=== PATIENT | female | born 1970 | race Caucasian/White ===

== ENCOUNTER → 2017-07-14 | Outpatient (CLI) | payer OTHER ==
--- NOTE | 2017-07-15 12:52 | MM ---
Reason for exam: screening (asymptomatic). Last mammogram was performed 1 year and 4 months ago. History: Patient had first child at age 32. Family history of breast cancer in aunt at age 85. Physical Findings: A clinical breast exam by your physician is recommended on an annual basis and results should be correlated with mammographic findings. MG Screening Mammo w CAD Bilateral CC and MLO view(s) were taken. Prior study comparison: March 19, 2016, bilateral MG screening mammo w CAD. January 2015, mammogram, performed at [facility]. There are scattered fibroglandular densities. Finding: There are a few typically benign round calcifications in the left breast. There is a chronic nodularity in the right breast. There is no discrete abnormality. ASSESSMENT: Benign, BI-RAD 2 RECOMMENDATION: Routine screening mammogram of both breasts in 1 year.
== END | disposition home or self-care (01) ==
LOC: RADMAMWWP 13:26
PROVIDERS: ATTEND Family Medicine
DX: Z12.31 Encounter for screening mammogram for malignant neoplasm of breast (principal); Z80.3 Family history of malignant neoplasm of breast

== ENCOUNTER → 2017-10-24 | Outpatient (CLI) | payer OTHER ==
--- NOTE | 2017-10-24 17:29 | US ---
EXAMINATION TYPE: Ultrasound MSK right ankle, peroneal tendons DATE OF EXAM: 10/24/2017 COMPARISON: NONE CLINICAL HISTORY: 47-year-old female with lateral right foot pain for one year, possibly related to p rior injury. Some improvement with physical therapy. M66.371 peroneal Tendon Tear right Ankle. TECHNIQUE: Multiple sonographic images of the lateral right ankle for assessment of the peroneal tend ons. FINDINGS: Both peroneal longus and peroneal brevis tendons appear intact with preservation of normal fibrillar appearance. The peroneus longus is followed to the lateral hindfoot just prior to its course along th e cuboid tunnel. The peroneus brevis is followed to its insertion at the base of the fifth metatarsal . No significant tenosynovial fluid. Along the inferior margin of the insertional peroneal brevis, there is a 2.1 x 1.0 cm lobulated hypoe choic lesion that demonstrates minimal internal vascularity. Some of the patient's pain localizes to this area. IMPRESSION: 1. No peroneal tendon tear identified. 2. A 2.1 x 1.0 cm focal hypoechoic area along the inferior margin of the insertional peroneus brevis. Differential considerations include gout, giant cell tumor of the tendon sheath, and synovitis inclu ding etiologies such as PVNS. Some of the patient's pain localizes to this area.
== END | disposition home or self-care (01) ==
LOC: RADUSWWP 08:17
PROVIDERS: ATTEND Podiatrist Foot & Ankle Surgery
DX: R93.7 Abnormal findings on diagnostic imaging of other parts of musculoskeletal system (principal)

== ENCOUNTER → 2017-10-24 | Outpatient (CLI) | payer OTHER ==
[2017-10-24 09:27] LABS: Basophils % (A) 1 %; Eosinophils # (A) 0.1 k/uL (0-0.7); Eosinophils % (A) 2 %; HCT 40.7 % (34.0-46.0); HGB 12.5 gm/dL (11.4-16.0); Hypochromasia Slight; Lymphocytes # (A) 2.2 k/uL (1.0-4.8); Lymphocytes % (A) 31 %; MCH 27.6 pg (25.0-35.0); MCHC 30.8 g/dL (31.0-37.0); MCV 89.6 fL (80.0-100.0); Mean Platelet Volume 8.6; Monocytes # (A) 0.5 k/uL (0-1.0); Monocytes % (A) 7 %; Neutrophils # (A) 3.9 k/uL (1.3-7.7); Neutrophils % (A) 57 %; Platelet Count 215 k/uL (150-450); RBC 4.55 m/uL (3.80-5.40); RDW 15.9 % (11.5-15.5); WBC 6.9 k/uL (3.8-10.6)
== END | disposition home or self-care (01) ==
LOC: LABWHC1 08:57
PROVIDERS: ATTEND Obstetrics & Gynecology Obstetrics
DX: I10 Essential (primary) hypertension (principal); Z01.812 Encounter for preprocedural laboratory examination; N92.1 Excessive and frequent menstruation with irregular cycle
CPT/HCPCS: 36415; 85025; 93005

== ENCOUNTER 2017-11-22 08:51 | Day surgery (SDC) | payer OTHER ==
[2017-11-10 16:37] VITALS: BMI 52.7
--- NOTE | 2017-11-21 14:06 | P.HPOB ---
History of Present Illness H&P Date: 11/21/17 Chief Complaint: AUB, family status complete This is a 47yo female that presents with c/o heavy irregular menses. she notes menses q 2 weeks with a heavy flow lasting 7 days she does have a history of uterine fibroids. she in addition desires LTL as she is done with childbearing. Review of Systems Constitutional: Reports lethargy, Denies chills, Denies fatigue, Denies fever Respiratory: Denies cough, Denies dyspnea Gastrointestinal: Denies constipation, Denies diarrhea Genitourinary: Denies urgency Menstruation: Reports menses variable, Reports period heavy Past Medical History Past Medical History: Deep Vein Thrombosis (DVT), GERD/Reflux, Hypertension, Sleep Apnea/CPAP/BIPAP Additional Past Medical History / Comment(s): C-PAP MACHINE, VARICOSE VEINS, HX OF ANEMIA, IRREGULAR MENSTRUAL PERIODS. History of Any Multi-Drug Resistant Organisms: None Reported Past Surgical History: Orthopedic Surgery Additional Past Surgical History / Comment(s): LEFT LEG FX PLATE & SCREWS Past Anesthesia/Blood Transfusion Reactions: No Reported Reaction Past Psychological History: No Psychological Hx Reported Smoking Status: Never smoker Past Alcohol Use History: Rare Past Drug Use History: None Reported - Past Family History Mother Family Medical History: No Reported History Medications and Allergies Home Medications Medication Instructions Recorded Confirmed Type Ergocalciferol [Vitamin D2] 50,000 unit PO Q7D 11/10/17 11/10/17 History Hydrochlorothiazide 25 mg PO DAILY 11/10/17 11/10/17 History Losartan [Cozaar] 25 mg PO DAILY 11/10/17 11/10/17 History Naproxen [Naprosyn] 500 mg PO Q12HR PRN 11/10/17 11/10/17 History Ranitidine HCl [Zantac] 150 mg PO BID 11/10/17 11/10/17 History Montelukast Sodium [Singulair] 10 mg PO QAM 11/18/17 11/18/17 History Wellbutrin(Unk Dose) 1 tab PO BID 11/18/17 11/18/17 History Allergies Allergy/AdvReac Type Severity Reaction Status Date / Time Penicillins Allergy Unknown Rash/Hives, Verified 11/10/17 11:12 Itching adhesive Allergy Steri Verified 11/10/17 11:13 Strips - Irritated skin and infection Exam Osteopathic Statement: *. No significant issues noted on an osteopathic structural exam other than those noted in the History and Physical/Consult. - OBG Physical Exam Abdomen: bowel sounds normal Vulva: both: normal Vagina: normal moisture Cervix: normal in appearence Uterus: 9cm on emb in the office. Uterus: normal size Adnexa: both: normal Anus/Rectum: normal perianal skin Assessment and Plan (1) Menometrorrhagia Narrative/Plan: will plan LTL, H GERDA EA. surgery reviewed with pt and questions answered. risks reviewed and pt states understanding, informed consent obtained Status: Acute Code(s): N92.1 - EXCESSIVE AND FREQUENT MENSTRUATION WITH IRREGULAR CYCLE SNOMED Code(s): 630128979
[~2017-11-22 08:51] MED LIST: ACETAMINOPHEN IV (For NPO) 1,000 MG in EMPTY BAG 1 BAG IVPB ONE; DEXAMETHASONE SOD PHOSPHATE 10 MG/ML 1 ML VIAL IV ONE; LACTATED RINGERS 1,000 ML IV SCH; MIDAZOLAM 2 MG/2 ML VIAL IV PRN; MORPHINE SULFATE 4 MG/ML SYRINGE IV PRN; ONDANSETRON 4 MG/2 ML VIAL IVP ONE; Pre Op ABX Message 1 EACH MISC MISCELLANE ONE; SCOPOLAMINE 1.5MG/72HR PATCH TRANSDERM ONE
[2017-11-22 09:46] VITALS: RESP 16
[2017-11-22] MEDS ORDERED: LIDOCAINE 1% 20 ML VIAL (10MG/ML) FOR IV START INTRADERMA ONE (09:50)
[2017-11-22] MEDS ORDERED: ROCURONIUM BROMIDE 10 MG/ML 10 ML VIAL IV ONE (10:36)
[2017-11-22] MEDS ORDERED: NEOSTIGMINE 1 MG/ML 10 ML VIAL ONE (10:36)
[2017-11-22] MEDS ORDERED: LIDOCAINE 1% INJ 10MG/ML (20 ML MDV) ONE (10:36)
[2017-11-22] MEDS ORDERED: GLYCOPYRROLATE 0.2 MG/ML 2 ML VIAL ONE (10:36)
[2017-11-22] MEDS ORDERED: SUCCINYLCHOLINE CHLORIDE VIAL 200 MG/10 ML VIAL IV ONE (10:36)
[2017-11-22] MEDS ORDERED: fentaNYL (PF) 50 MCG/ML 2 ML AMP ONE (10:36)
[2017-11-22] MEDS ORDERED: KETOROLAC 30 MG/ML 1 ML VIAL ONE (10:36)
[2017-11-22] MEDS ORDERED: MIDAZOLAM 2 MG/2 ML VIAL ONE (10:36)
[2017-11-22] MEDS ORDERED: PROPOFOL 10 MG/ML 20 ML VIAL IV ONE (10:36)
[2017-11-22] MEDS ORDERED: BUPIVACAINE (PF) 0.25% 30 ML VIAL SQ ONE (10:57)
--- NOTE | 2017-11-22 11:42 | P.OP ---
Date of Procedure: 11/22/17 Preoperative Diagnosis: menorrhagia, uterine fibroids, family status complete Postoperative Diagnosis: same Procedure(s) Performed: LTL with falope rings, Hysteroscopy, dilation and currettage, endometrial ablation Anesthesia: GETA Surgeon: Ksenia Carrington Estimated Blood Loss (ml): 5 IV fluids (ml): 600 Urine output (ml): 100 Pathology: other (Endometrial curettings scant sample) Condition: stable Disposition: PACU Indications for Procedure: Family status complete, menorrhagia Operative Findings: Normal uterus tubes and ovaries were appreciated, endometrial cavity was normal in appearance. Description of Procedure: After informed consent was obtained in the preoperative suite patient was taken operating room where general anesthesia was obtained without difficulty by the anesthesia department. She was prepped and draped in normal sterile fashion in the dorsal lithotomy position. A red rubber catheter was then used to drain the bladder clear yellow urine with speculum in the posterior vaginal vault and the anterior lip of cervix was visualized and grasped with a single-tooth tenaculum. An acorn uterine macular was then advanced into the endometrial cavity as a means medically the uterus throughout the procedure. Attention was then turned to the abdomen where in the umbilical fold small incision was made through this incision the Veress needle was placed with a various needle was seen to be Procession with insufflation of CO2 gas CO2 insufflation was allowed to occur. Barnhart 3 L of gas were used to obtain pneumoperitoneum at this time and felt millimeter trocar and sleeve of the left scope in place was placed through the skin incision toward the pneumoperitoneum. The above noted findings were visualized. At this point the additional port site was placed in the right lower quadrant this is a 10 mm port placed under direct visualization. The Falope ring applicator was then placed into the abdomen operated per caustic cresylate shift superintendent's instructions on both fallopian tubes pictures were taken and all instruments removed from the patient's abdomen. Attention was then turned to the patient's vaginal vault acorn uterine manipulator was removed without difficulty and endocervical canal was then dilated to 18-Afghan. Hysteroscope was placed through the cervix and further endometrial cavity a normal appearing and in neutral T was visualized. A sharp curettage was then performed the specimen was then sent to pathology for analysis. The NovaSure device was then opened and set to the patient's uterine measurements a length of 5 with a 2.5 for a power of 69 in a timely 3 seconds. After the cycle was complete and of note it did pass cavity assessment prior to initiating the cycle day NovaSure device was removed without difficulty. The skin incisions were then closed with 4-0 Vicryl in a difficult fashion Steri -Strips and endometrial applied as needed. All counts are correct 2 tolerated procedure well and was taken the recovery room awake and in stable condition
[2017-11-22 11:56] VITALS: TEMP 97.8
[2017-11-22] MEDS ORDERED: HYDROmorphone 2 MG/ML 1 ML SYRINGE IVP ONE ×2 (12:18→12:23)
[2017-11-22] MEDS ORDERED: LACTATED RINGERS 1,000 ML IV ONE (12:18)
[2017-11-22] MEDS ORDERED: ONDANSETRON 4 MG/2 ML VIAL IVP ONE (12:51)
[2017-11-22 13:18] VITALS: BP 141/80; PULSE 69
[2017-11-22] MEDS ORDERED: METOCLOPRAMIDE 5 MG/ML 2 ML VIAL IVP ONE (14:06)
== END 2017-11-22 14:41 | disposition home or self-care (01) ==
LOC: OR 08:51
PROVIDERS: ATTEND Obstetrics & Gynecology Obstetrics
DX: N92.1 Excessive and frequent menstruation with irregular cycle (principal); Z30.2 Encounter for sterilization; N87.9 Dysplasia of cervix uteri, unspecified; K21.9 Gastro-esophageal reflux disease without esophagitis; I10 Essential (primary) hypertension; G47.33 Obstructive sleep apnea (adult) (pediatric); E66.9 Obesity, unspecified; Z68.43 Body mass index [BMI] 50.0-59.9, adult; Z88.0 Allergy status to penicillin; Z91.048 Other nonmedicinal substance allergy status; Z79.899 Other long term (current) drug therapy; Z86.718 Personal history of other venous thrombosis and embolism; Z99.89 Dependence on other enabling machines and devices
CPT/HCPCS: 58563; 58671; 81025; 88305; J2250; J0330; J1170; J1100; J2710; J2765; J2405; J2001; J3010; J1885; J0131; J2704

== ENCOUNTER → 2018-01-09 | Outpatient (CLI) | payer OTHER ==
--- NOTE | 2018-01-10 09:37 | MR ---
EXAMINATION TYPE: MR ankle RT wo con DATE OF EXAM: 01/09/2018 COMPARISON: Right ankle ultrasound October 24, 2017. HISTORY: Peroneal tendonitis per order, ankle pain x 1 year per patient. Standard multiplanar, multisequence MRI departmental protocol Multiplanar, multisequence images of the right ankle were acquired. FINDINGS: Exam is suboptimal as there is degradation from motion artifact. Distal Achilles tendon is intact. Visualized plantar fascia is within normal limits. The peroneal tendons are intact. There is slight thickening of the tendons at level of the lateral ma lleolus with some surrounding fluid particularly the peroneal longus tendon. There is also some surro unding fluid and pronated brevis insertion at base of fifth metatarsal with mild increased signal see n best axial image 2, sagittal image 17, and coronal image 11. Fluid surrounds the posterior tibial tendon at level of tibiotalar joint with adjacent subcutaneous e codie. There is additional fluid at level of medial malleolus in the apices DLP as well as additional fluid and mid to anterior calcaneal level. Tendon is intact. Area of increased fluid at FHL posterior malleoli is present. Anterior tibiofibular and the anterior talofibular ligaments are intact. Anterior and posterior talof ibular ligaments appear slightly thickened. Normal sinus tarsi fat is seen. Ankle mortise symmetry is maintained. There is moderate tibiotalar tayo int effusion. Bone marrow signal intensity is preserved. Extensor tendons anteriorly are intact. IMPRESSION: 1. There is tendinosis and/or mild tear distal PB tendon, there is suspected tenosynovitis of PL and PB tendons. No obvious mass near insertion identified to account for ultrasound findings. 2. Additional tenosynovitis of the posterior medial flexor tendons noted.
== END | disposition home or self-care (01) ==
LOC: RADMRIMAIN 10:06
PROVIDERS: ATTEND Podiatrist Foot & Ankle Surgery
DX: M65.871 Other synovitis and tenosynovitis, right ankle and foot (principal)

== ENCOUNTER → 2018-10-16 | Outpatient (CLI) | payer OTHER ==
--- NOTE | 2018-10-17 07:35 | MM ---
Reason for exam: screening (asymptomatic). Last mammogram was performed 1 year and 3 months ago. History: Patient had first child at age 32. Family history of breast cancer in aunt at age 85. Physical Findings: A clinical breast exam by your physician is recommended on an annual basis and results should be correlated with mammographic findings. MG Screening Mammo w CAD Bilateral CC and MLO view(s) were taken. Prior study comparison: July 14, 2017, bilateral MG screening mammo w CAD. March 19, 2016, bilateral MG screening mammo w CAD. There are scattered fibroglandular densities. There is chronic nodularity in the right breast. No significant changes when compared with prior studies. ASSESSMENT: Benign, BI-RAD 2 RECOMMENDATION: Routine screening mammogram of both breasts in 1 year.
== END | disposition home or self-care (01) ==
LOC: RADMAMWWP 07:16
PROVIDERS: ATTEND Family Medicine
DX: Z12.31 Encounter for screening mammogram for malignant neoplasm of breast (principal); Z80.3 Family history of malignant neoplasm of breast
CPT/HCPCS: 77067

== ENCOUNTER → 2018-11-21 | Outpatient (CLI) | payer BC ==
--- NOTE | 2018-11-21 23:10 | MR ---
EXAMINATION TYPE: MR ankle RT wo con DATE OF EXAM: 11/21/2018 COMPARISON: 01/09/2018 HISTORY: Pain Standard multiplanar, multisequence MRI departmental protocol Multiplanar, multisequence images of the right ankle were acquired. FINDINGS: There is mild ankle joint effusion. There is subcutaneous edema around the lower leg. There is edema in the soft tissues anterior to the Achilles tendon and posterior to the flexor tendons of the ankle. The collateral ligaments appear intact. There is no evidence for fracture. I see no bony d estructive process. There is fluid around the medial and lateral flexor tendons of the ankle. Luke s tendon is intact. There is no retraction. Joint spaces are fairly normal. Ankle mortise is anatomic . There is mild subcutaneous edema around the ankle. IMPRESSION: There is subcutaneous edema similar to old exam. There is fluid around the medial and lateral flexor tendons of the ankle consistent with tenosynovitis unchanged.. Normal joint spaces. No fracture seen.
== END ==
LOC: RADMRIMAIN 18:46
PROVIDERS: ATTEND Podiatrist Foot & Ankle Surgery
DX: M76.71 Peroneal tendinitis, right leg (principal); R60.0 Localized edema

== ENCOUNTER → 2019-08-16 | Outpatient (CLI) | payer BC ==
[2019-08-16 09:37] LABS: Basophils # (A) 0.1 k/uL (0-0.2); Basophils % (A) 1 %; Eosinophils # (A) 0.1 k/uL (0-0.7); Eosinophils % (A) 2 %; HCT 38.3 % (34.0-46.0); Lymphocytes % (A) 23 %; MCH 30.1 pg (25.0-35.0); MCV 88.7 fL (80.0-100.0); Mean Platelet Volume 7.1; Monocytes # (A) 0.5 k/uL (0-1.0); Monocytes % (A) 6 %; Neutrophils # (A) 5.8 k/uL (1.3-7.7); Neutrophils % (A) 67 %; Platelet Count 257 k/uL (150-450); RBC 4.32 m/uL (3.80-5.40); WBC 8.7 k/uL (3.8-10.6)
== END | disposition home or self-care (01) ==
LOC: LABPAT 08:31
PROVIDERS: ATTEND Obstetrics & Gynecology Obstetrics
DX: Z01.818 Encounter for other preprocedural examination (principal); Z01.812 Encounter for preprocedural laboratory examination; N93.0 Postcoital and contact bleeding; N84.1 Polyp of cervix uteri; I10 Essential (primary) hypertension
CPT/HCPCS: 36415; 85025; 93005

== ENCOUNTER 2019-08-21 08:28 | Day surgery (SDC) | payer BC ==
[2019-08-20 10:00] VITALS: BMI 50.1
--- NOTE | 2019-08-20 14:36 | P.HPOB ---
History of Present Illness H&P Date: 08/20/19 Chief Complaint: postcoital bleeding, endometrial polyp This is a 49yo female that presents with c/o post coital spotting/bleeding. she states it has been going on for months. she had a recent pap and it was normal in addition. us was obtained and a endometrial polyp was noted. dsicussed H DC given this polyp Review of Systems Constitutional: Denies chills, Denies fatigue, Denies fever Cardiovascular: Denies edema Respiratory: Denies dyspnea Gastrointestinal: Denies nausea, Denies vomiting Genitourinary: Reports as per HPI Past Medical History Past Medical History: GERD/Reflux, Hypertension, Sleep Apnea/CPAP/BIPAP Additional Past Medical History / Comment(s): left foot pain and needs foot surgery. cpap use History of Any Multi-Drug Resistant Organisms: None Reported Past Surgical History: Orthopedic Surgery, Tubal Ligation Additional Past Surgical History / Comment(s): left leg surgery following broken bone Past Anesthesia/Blood Transfusion Reactions: Postoperative Nausea & Vomiting (PONV) Smoking Status: Never smoker - Past Family History Mother Family Medical History: Coronary Artery Disease (CAD), Diabetes Mellitus Father Family Medical History: Congestive Heart Failure (CHF), Coronary Artery Disease (CAD), Diabetes Mellitus Medications and Allergies Home Medications Medication Instructions Recorded Confirmed Type Ergocalciferol [Vitamin D2] 50,000 unit PO Q7D 11/10/17 08/20/19 History Hydrochlorothiazide 25 mg PO DAILY 11/10/17 08/20/19 History Losartan [Cozaar] 100 mg PO DAILY 11/10/17 08/20/19 History Ranitidine HCl [Zantac] 150 mg PO BID 11/10/17 08/20/19 History Nf-Cbd Oil 1 dose PO BID 08/20/19 08/20/19 History Allergies Allergy/AdvReac Type Severity Reaction Status Date / Time Penicillins Allergy Unknown Rash/Hives, Verified 08/20/19 09:51 Itching adhesive Allergy Steri Verified 08/20/19 09:51 Strips - Irritated skin and infection Exam Osteopathic Statement: *. No significant issues noted on an osteopathic structural exam other than those noted in the History and Physical/Consult. Intake and Output 08/19/19 08/20/19 08/20/19 22:59 06:59 14:59 Other: Weight 149.685 kg targeted physical exam was preformed on this patient, in general this is a well nourished well developed female in NAD, heart has a RRR, breathing is noted to be non labored. abdomen is soft and non tender, uterus is normal in size, mobile. no adnexal masses are appreciated. she has no LE edema Assessment and Plan (1) Postcoital bleeding Status: Acute Code(s): N93.0 - POSTCOITAL AND CONTACT BLEEDING SNOMED Code (s): 31670122 (2) Endometrial polyp Status: Acute Code(s): N84.0 - POLYP OF CORPUS UTERI SNOMED Code(s): 79828962 Plan: Plan H DC procedure reviewed with pt and all questions answered. will proceed
[~2019-08-21 08:28] MED LIST changes: -ACETAMINOPHEN IV (For NPO) 1,000 MG in EMPTY BAG 1 BAG IVPB ONE; +HYDROmorphone 0.5 MG/0.5 ML SYRINGE IVP PRN; -MORPHINE SULFATE 4 MG/ML SYRINGE IV PRN
[2019-08-21 08:50] VITALS: RESP 16
[2019-08-21] MEDS ORDERED: LIDOCAINE 1% 20 ML VIAL (10MG/ML) FOR IV START INTRADERMA ONE (08:57)
[2019-08-21] MEDS ORDERED: PROPOFOL 10 MG/ML 20 ML VIAL IV ONE (09:22)
[2019-08-21] MEDS ORDERED: fentaNYL (PF) 50 MCG/ML 2 ML AMP ONE (09:22)
[2019-08-21] MEDS ORDERED: KETOROLAC 30 MG/ML 1 ML VIAL ONE (09:22)
[2019-08-21] MEDS ORDERED: SUCCINYLCHOLINE CHLORIDE VIAL 200 MG/10 ML VIAL IV ONE (09:22)
[2019-08-21] MEDS ORDERED: LIDOCAINE 1% INJ 10MG/ML (20 ML MDV) ONE (09:22)
[2019-08-21] MEDS ORDERED: MIDAZOLAM 2 MG/2 ML VIAL ONE (09:22)
--- NOTE | 2019-08-21 10:07 | P.OP ---
Date of Procedure: 08/21/19 Preoperative Diagnosis: Postcoital bleeding, parametrial polyp Postoperative Diagnosis: Same plus cervical stenosis Procedure(s) Performed: Hysteroscopy, dilation curettage Anesthesia: NADINEA Surgeon: Ksenia Carrington Estimated Blood Loss (ml): 5 Urine output (ml): 100 Pathology: other (Scant endometrial curettings secondary to cervical stenosis) Condition: stable Disposition: PACU Indications for Procedure: Postcoital bleeding ultrasound revealing endometrial polyp Operative Findings: Significant cervical stenosis noted, Asherman syndrome noted within endometrial cavity Description of Procedure: Patient was taken back to the operative suite where general anesthesia was obtained without difficulty by the anesthesia department. She was prepped and draped in normal sterile fashion in the dorsal lithotomy position. A right upper catheter was then used to drain the bladder of clear yellow urine. A weighted speculum was placed in the posterior vaginal vault, and the anterior lip of the cervix was visualized and grasped with a single-tooth tenaculum. The endocervical canal was then dilated cervical stenosis was noted. The hysteroscope was then placed through the cervix and toward the endometrial cavity that had sounded to 8 cm. Asherman syndrome was noted no abnormalities were noted as far as abnormal-appearing individual tissue. Camera was removed and a sharp curettage was performed this was difficult secondary to cervical cervical stenosis. Additional dilation was performed and still difficulties were encountered. The scant specimen was sent to pathology for analysis. The single-tooth tenaculum was taken off of the anterior lip of the cervix no bleeding was noted. All instruments were removed from the patient's vaginal vault, ALL COUNTS were correct 2, patient tolerated procedure well and was taken the recovery room awake in stable condition.
[2019-08-21 10:16] VITALS: TEMP 97
[2019-08-21 11:39] VITALS: BP 132/66; PULSE 49
== END 2019-08-21 12:09 | disposition home or self-care (01) ==
LOC: OR 08:28
PROVIDERS: ATTEND Obstetrics & Gynecology Obstetrics
DX: N88.2 Stricture and stenosis of cervix uteri (principal); N93.0 Postcoital and contact bleeding; N88.8 Other specified noninflammatory disorders of cervix uteri; I10 Essential (primary) hypertension; K21.9 Gastro-esophageal reflux disease without esophagitis; G47.33 Obstructive sleep apnea (adult) (pediatric); Z99.89 Dependence on other enabling machines and devices; Z79.899 Other long term (current) drug therapy; Z88.0 Allergy status to penicillin; Z91.048 Other nonmedicinal substance allergy status; Z98.51 Tubal ligation status; Z98.890 Other specified postprocedural states; Z82.49 Family history of ischemic heart disease and other diseases of the circulatory system; Z83.3 Family history of diabetes mellitus
CPT/HCPCS: 81025; 88305; 58558; J2250; J0330; J1100; J2405; J2001; J3010; J1885; J2704; J1170

== ENCOUNTER → 2019-11-21 | Outpatient (CLI) | payer BC ==
--- NOTE | 2019-11-23 10:21 | MM ---
Reason for exam: screening (asymptomatic). Last mammogram was performed 1 year and 1 month ago. History: Patient had first child at age 32. Family history of breast cancer in aunt at age 85. Physical Findings: A clinical breast exam by your physician is recommended on an annual basis and results should be correlated with mammographic findings. MG Screening Mammo w CAD Bilateral CC and MLO view(s) were taken. Prior study comparison: October 16, 2018, bilateral MG screening mammo w CAD. July 14, 2017, bilateral MG screening mammo w CAD. There are scattered fibroglandular densities. There is chronic nodularity in the right breast. No significant changes when compared with prior studies. ASSESSMENT: Benign, BI-RAD 2 RECOMMENDATION: Routine screening mammogram of both breasts in 1 year.
== END | disposition home or self-care (01) ==
LOC: RADMAMWWP 15:04
PROVIDERS: ATTEND Family Medicine
DX: Z12.31 Encounter for screening mammogram for malignant neoplasm of breast (principal); Z80.3 Family history of malignant neoplasm of breast
CPT/HCPCS: 77067

== ENCOUNTER → 2020-10-23 | Outpatient (CLI) | payer BC ==
--- NOTE | 2020-10-23 11:07 | P.STRESS ---
- Stress Test Note Stress Test Results/Findings: Exam Performed: stress echo exercise Exam Date: 10/23/20 Reason for Exam: abn EKG Height: 5 ft 8 in Weight: 330 kg Protocol: CHATO Stage: 2 Duration of Exercise: 5 MIN Resting Heart Rate: 68 Resting Blood Pressure: 150/61 Maximum Achieved Heart Rate: 153 Maximum Achieved Blood Pressure: 181/78 85% PMHR: 145 100% PMHR: 171 METS: 7.0 Technologist Comment: Stress Test Results/Findings: Patient underwent exercise stress echo with a Chato protocol treadmill stress test. Patient exercised into Stage 2 for a total of 5 minutes reaching a total of 7.0 METS. Patient's maximum heart rate was 153 which represented 89 % age- predicted maximum heart rate. Test was terminated secondary to fatigue. Stress EKG portion: At baseline patient's EKG showed normal sinus rhythm, normal axis, no significant ST or T wave abnormalities. At peak exercise, EKG showed frequent PVCs, bigeminy, ventricular couplets, [address] depressions in the inferior leads and [address] depressions in V3 through V6 consistent with an ischemic response. Stress echo portion: 2-D echocardiogram was performed in the parasternal long, personal short, apical 2 and apical four-chamber views at rest, peak exercise and in recovery. At baseline, echocardiogram showed left ventricular ejection fraction 60% without wall motion abnormalities. With peak exercise, echocardiogram shows basal to mid inferior basal inferoseptal hypokinesis consistent with an ischemic response. Conclusions: 1. Abnormal EKG and echo response with stress-induced inferior hypokinesis consistent with ischemia. 2. Fair exercise capacity.
== END | disposition home or self-care (01) ==
LOC: RADNMMAIN 10:05
PROVIDERS: ATTEND Family Medicine
DX: I51.89 Other ill-defined heart diseases (principal); R94.31 Abnormal electrocardiogram [ECG] [EKG]
CPT/HCPCS: 93351

== ENCOUNTER → 2020-11-17 | Day surgery (SDC) | payer BC ==
[2020-11-12 08:57] VITALS: BMI 49.4
[~2020-11-17] MED LIST changes: +ALPRAZolam 0.25 MG TAB PO PRN; +ALPRAZolam 0.5 MG TAB PO PRN; +ASPIRIN 325 MG TAB PO STA; +ATORVASTATIN 80 MG TAB PO STA; -DEXAMETHASONE SOD PHOSPHATE 10 MG/ML 1 ML VIAL IV ONE; +HEPARIN SODIUM 1,000 UN/ML (10ML VL) IV ONE; +HEPARIN SODIUM 1,000 UN/ML (10ML VL) ONE; +HEPARIN SODIUM,PORCINE 10,000 UNIT in SODIUM CHLORIDE 0.9% 1,000 ML IRRIGATION PRN; +HEPARIN SODIUM,PORCINE 2,500 UNIT in SODIUM CHLORIDE 0.9% 250 ML IRRIGATION PRN; -HYDROmorphone 0.5 MG/0.5 ML SYRINGE IVP PRN; +IOPAMIDOL-370 125ML BTL INJ ONE; -LACTATED RINGERS 1,000 ML IV SCH; +LIDOCAINE 1% INJ 10MG/ML (20 ML MDV) ONE; +LIDOCAINE 1% INJ 10MG/ML (20 ML MDV) SQ ONE; -MIDAZOLAM 2 MG/2 ML VIAL IV PRN; +NITROGLYCERIN SL TABS 0.4 MG TAB SUBLINGUAL PRN; -ONDANSETRON 4 MG/2 ML VIAL IVP ONE; -Pre Op ABX Message 1 EACH MISC MISCELLANE ONE; +RX INFO: IV CONTRAST WAS GIVEN 1 EACH MISC MISCELLANE PRN; -SCOPOLAMINE 1.5MG/72HR PATCH TRANSDERM ONE; +SODIUM CHLORIDE 0.9% 1,000 ML in EMPTY BAG 1 BAG IV ONE; +VERAPAMIL 2.5 MG/ML 2 ML AMP ONE; +VERAPAMIL SYRINGE (5 MG/10 ML) INTRAARTER ONE; +fentaNYL (PF) 50 MCG/ML 2 ML AMP IVP ONE; +fentaNYL (PF) 50 MCG/ML 2 ML AMP ONE
[2020-11-17 06:59] VITALS: RESP 18; TEMP 99.1
[2020-11-17 07:31] LABS: Calcium 9.7 mg/dL (8.4-10.2); Potassium 3.8 mmol/L (3.5-5.1)
[2020-11-17] MEDS: MIDAZOLAM 2 MG/2 ML VIAL IVP ONE ×2 (07:40→07:47)
--- NOTE | 2020-11-17 08:11 | P.CARDCATH ---
Description of Procedure: PROCEDURES PERFORMED: Bilateral coronary angiography INDICATION: Abnormal stress test, dyspnea on exertion HISTORY: Patient is a pleasant 50-year-old female with a history of hypertension, obesity, hyperlipidemia, early family history of coronary artery disease who was found to have prolonged QT and does have some decreased exercise capacity and therefore had a stress echo performed where she had limited exercise capacity and EKG abnormalities with ST depression as well as inferior hypokinesis. CONSENT:I have discussed the risks, benefits and alternative therapies for the above-mentioned procedure and for both sedation/analgesia as well as necessary blood product administration, if indicated, as they pertain to this patient. The patient has indicated understanding and acceptance of the risks and procedures discussed. PROCEDURE: After the risks, benefits and alternatives of the above mentioned procedure explained in detail with the patient, informed consent was obtained. Patient was taken to the catheterization lab and prepped and draped in usual fashion. 1% lidocaine was used to anesthetize the right radial artery. A 6- Martiniquais sheath was placed in the right radial artery using modified Seldinger technique. Left coronary angiography was performed with a 5-Martiniquais JL 3.5 catheter and right coronary angiography was performed with a 5-Martiniquais JR5 catheter in various views. The right radial sheath was removed and a TR band was placed with hemostasis achieved. The patient tolerated the procedure well. Patient was transported back to the post catheterization holding area in stable condition. Conscious Sedation: Patient was monitored under the direct supervision of vision of myself for conscious sedation using Versed and fentanyl for a total duration of 17 minutes HEMODYNAMICS: Ao: 142/78 SELECTIVE CORONARY ARTERIOGRAPHY: LEFT MAIN: The left main is a large caliber, short vessel which bifurcates into the LAD and circumflex. There is no significant stenosis. LEFT ANTERIOR DESCENDING CORONARY ARTERY: LAD is a large caliber vessel which wraps around to the apex. There is no significant stenosis. LEFT CIRCUMFLEX CORONARY ARTERY: Left circumflex is a moderate caliber vessel without significant stenosis. The circumflex gives off a left PLV and is codominant. RIGHT CORONARY ARTERY: The right coronary artery is a moderate caliber vessel which gives off a PDA and is codominant vessel. There is no significant stenosis. FINAL IMPRESSION: 1. Normal coronary arteries as described above. PLAN: 1. Aggressive risk factor modification per most recent ACC/AHA guidelines. 2. Follow-up in the office in 1-2 weeks.
[2020-11-17 11:24] VITALS: BP 142/80; PULSE 50
== END ==
LOC: CATHCVL 06:13
PROVIDERS: ATTEND Internal Medicine
DX: R06.00 Dyspnea, unspecified (principal); R94.31 Abnormal electrocardiogram [ECG] [EKG]; I10 Essential (primary) hypertension; E66.09 Other obesity due to excess calories; Z88.0 Allergy status to penicillin; Z68.43 Body mass index [BMI] 50.0-59.9, adult; Z82.49 Family history of ischemic heart disease and other diseases of the circulatory system; Z79.899 Other long term (current) drug therapy
CPT/HCPCS: 93454; 80048; C1769; C1894; J2250; J2001; J3010; J1644; Q9967

== ENCOUNTER → 2020-12-23 | Outpatient (CLI) | payer BC ==
--- NOTE | 2020-12-24 09:54 | MM ---
Reason for exam: screening (asymptomatic). Last mammogram was performed 1 year and 1 month ago. History: Patient had first child at age 32. Family history of breast cancer in aunt at age 85. Physical Findings: A clinical breast exam by your physician is recommended on an annual basis and results should be correlated with mammographic findings. MG Screening Mammo w CAD Bilateral CC, MLO, and XCCL view(s) were taken. Prior study comparison: November 21, 2019, bilateral MG screening mammo w CAD. October 16, 2018, bilateral MG screening mammo w CAD. The breast tissue is heterogeneously dense. This may lower the sensitivity of mammography. There is no discrete abnormality. No significant changes when compared with prior studies. ASSESSMENT: Negative, BI-RAD 1 RECOMMENDATION: Routine screening mammogram of both breasts in 1 year.
== END | disposition home or self-care (01) ==
LOC: RADMAMWWP 14:32
PROVIDERS: ATTEND Family Medicine
DX: Z12.31 Encounter for screening mammogram for malignant neoplasm of breast (principal); Z80.3 Family history of malignant neoplasm of breast
CPT/HCPCS: 77067

== ENCOUNTER → 2022-02-05 | Outpatient (CLI) | payer BC ==
--- NOTE | 2022-02-08 10:14 | MM ---
Reason for exam: screening (asymptomatic). Last mammogram was performed 1 year and 1 month ago. History: Patient had first child at age 32. Family history of breast cancer in aunt at age 85. Physical Findings: A clinical breast exam by your physician is recommended on an annual basis and results should be correlated with mammographic findings. MG Screening Mammo w CAD Bilateral CC and MLO view(s) were taken. Prior study comparison: December 23, 2020, bilateral MG screening mammo w CAD. November 21, 2019, bilateral MG screening mammo w CAD. There are scattered fibroglandular densities. There is chronic nodularity in the right breast. There is no discrete abnormality. ASSESSMENT: Benign, BI-RAD 2 RECOMMENDATION: Routine screening mammogram of both breasts in 1 year.
== END | disposition home or self-care (01) ==
LOC: RADMAMWWP 07:31
PROVIDERS: ATTEND Family Medicine
DX: Z12.31 Encounter for screening mammogram for malignant neoplasm of breast (principal); Z80.3 Family history of malignant neoplasm of breast
CPT/HCPCS: 77067

== ENCOUNTER → 2022-06-06 | Outpatient (CLI) | payer BC ==
--- NOTE | 2022-06-06 20:40 | MR ---
EXAMINATION TYPE: MR knee LT wo con DATE OF EXAM: 06/06/2022 COMPARISON: None. HISTORY: Left medial knee pain x 3 mos. TECHNIQUE: Multiplanar, multisequence imaging of the left knee is performed without IV contrast. FINDINGS: MEDIAL MENISCUS: Triangular-shaped increased signal posterior horn LATERAL MENISCUS: Horizontal increased signal extends through anterior and posterior horns. CRUCIATE LIGAMENTS: The anterior and posterior cruciate ligaments are intact and unremarkable. COLLATERAL LIGAMENTS: The medial collateral ligament and lateral collateral ligament complex are inta ct and unremarkable. EXTENSOR MECHANISM: Visualized quadriceps and patellar tendons are intact. EFFUSION: No significant suprapatellar joint effusion. POPLITEAL CYST: Small size popliteal/mejias cyst. TRICOMPARTMENT SPACES: Moderate to advanced narrowing and spurring patellofemoral compartment. Mild t o moderate narrowing and spurring medial lateral tibiofemoral compartments. CARTILAGE: Significant chondromalacia patella with areas of full-thickness cartilaginous loss. BONE MARROW SIGNAL: Areas of heterogeneous diminished T1 and increased T2 signal along the posterior patellar Clif especially laterally at site of full-thickness cartilaginous loss.. OTHER: No additional significant abnormality is appreciated. IMPRESSION: 1. Tricompartment degenerative changes with fairly advanced findings patellofemoral compartment noted . 2. Intrasubstance tear lateral meniscus, no full-thickness meniscal tear. 3. Intrasubstance tear posterior horn medial meniscus, no full-thickness meniscal tear. 4. Small popliteal cyst.
== END | disposition home or self-care (01) ==
LOC: RADMRIMAIN 13:30
PROVIDERS: ATTEND Nurse Practitioner Family
DX: M71.22 Synovial cyst of popliteal space [Baker], left knee (principal); M17.12 Unilateral primary osteoarthritis, left knee

== ENCOUNTER → 2022-08-02 | Outpatient (CLI) | payer BC ==
[2022-08-02 14:59] LABS: Anion Gap 11.2 mmol/L (10.00-18.00); Carbon Dioxide 24.7 mmol/L (20.0-27.5); Potassium 3.8 mmol/L (3.5-5.5)
[2022-08-02 15:24] LABS: Basophils # (A) 0.06 X 10*3/uL (0.00-0.10); Basophils % (A) 0.7 %; Eosinophils # (A) 0.16 X 10*3/uL (0.04-0.35); Eosinophils % (A) 1.8 %; HGB 13.2 g/dL (12.0-15.0); Immature Grans, Automated 0.3 %; Lymphocytes # (A) 2.51 X 10*3/uL (0.90-5.00); Lymphocytes % (A) 28.8 %; MCH 28.7 pg (27.0-32.0); MCHC 31.4 g/dL (32.0-37.0); MCV 91.3 fL (80.0-97.0); Mean Platelet Volume 12.3 fL (9.5-12.2); Monocytes # (A) 0.58 X 10*3/uL (0.20-1.00); Monocytes % (A) 6.7 %; NRBC Per 100 WBC 0 /100 WBCS (0.0-0.0); Neutrophils # (A) 5.37 X 10*3/uL (1.80-7.70); Neutrophils % (A) 61.7 %; Platelet Count 265 X 10*3/uL (140-440); RDW 14.7 % (11.5-14.5); WBC 8.71 X 10*3/uL (4.50-10.00)
== END | disposition home or self-care (01) ==
LOC: LABPAT 08:06
PROVIDERS: ATTEND Orthopaedic Surgery
DX: Z01.818 Encounter for other preprocedural examination (principal); I49.9 Cardiac arrhythmia, unspecified; M23.92 Unspecified internal derangement of left knee
CPT/HCPCS: 80051; 85025; 93005

== ENCOUNTER 2022-08-25 08:55 | Day surgery (SDC) | payer BC ==
[2022-08-24 09:43] VITALS: BMI 53.1
--- NOTE | 2022-08-25 00:44 | HP ---
HISTORY AND PHYSICAL DATE OF SURGERY: 08/25/2022. HISTORY OF PRESENT ILLNESS: Simona Sales is a 52-year-old patient seen with progressive left knee pain. We discussed options for treatment. Status post left knee arthroscopy. Consent was obtained. PAST MEDICAL HISTORY: Hypertension, gastroesophageal reflux disease. PAST SURGICAL HISTORY: Left ankle surgery, tubal ligation. DAILY MEDICATIONS: 1. Omeprazole. 2. Losartan. 3. Spironolactone. ALLERGIES: Penicillin. SOCIAL HISTORY: She denies tobacco use. PHYSICAL EVALUATION OF THE LEFT KNEE: Range of motion is +2/3 to 115. Mild effusion. Tenderness along the medial and lateral joint lines. Positive medial Syed's. Positive lateral Syed's. Ligaments stable. Hip rotation without pain. Distal neurovascular exam is intact. RADIOGRAPHS: Radiographs of the left knee revealed moderate osteoarthritic changes. MRI of left knee revealed medial and lateral meniscal tears. IMPRESSION: 1. Intermittent left knee with medial and lateral meniscal tears. 2. Left knee osteoarthritis. 3. Hypertension. 4. Gastroesophageal reflux disease. PLAN: Left knee arthroscopy with partial medial/lateral meniscectomy and debridement. MMODL / IJN: [id number] /
[~2022-08-25 08:55] MED LIST changes: -ALPRAZolam 0.25 MG TAB PO PRN; -ALPRAZolam 0.5 MG TAB PO PRN; -ASPIRIN 325 MG TAB PO STA; -ATORVASTATIN 80 MG TAB PO STA; +DEXAMETHASONE SOD PHOSPHATE 4 MG/ML 1 ML VIAL IV ONE; -HEPARIN SODIUM 1,000 UN/ML (10ML VL) IV ONE; -HEPARIN SODIUM 1,000 UN/ML (10ML VL) ONE; -HEPARIN SODIUM,PORCINE 10,000 UNIT in SODIUM CHLORIDE 0.9% 1,000 ML IRRIGATION PRN; -HEPARIN SODIUM,PORCINE 2,500 UNIT in SODIUM CHLORIDE 0.9% 250 ML IRRIGATION PRN; +HYDROmorphone 0.5 MG/0.5 ML SYRINGE IVP PRN; -IOPAMIDOL-370 125ML BTL INJ ONE; +LACTATED RINGERS 1,000 ML IV SCH; -LIDOCAINE 1% INJ 10MG/ML (20 ML MDV) ONE; -LIDOCAINE 1% INJ 10MG/ML (20 ML MDV) SQ ONE; -NITROGLYCERIN SL TABS 0.4 MG TAB SUBLINGUAL PRN; +ONDANSETRON 4 MG/2 ML VIAL IVP ONE; -RX INFO: IV CONTRAST WAS GIVEN 1 EACH MISC MISCELLANE PRN; -SODIUM CHLORIDE 0.9% 1,000 ML in EMPTY BAG 1 BAG IV ONE; -VERAPAMIL 2.5 MG/ML 2 ML AMP ONE; -VERAPAMIL SYRINGE (5 MG/10 ML) INTRAARTER ONE; +ceFAZolin 3 GM in SODIUM CHLORIDE 0.9% 100 ML IVPB PRN; -fentaNYL (PF) 50 MCG/ML 2 ML AMP IVP ONE; -fentaNYL (PF) 50 MCG/ML 2 ML AMP ONE
[2022-08-25] MEDS ORDERED: LIDOCAINE 1% (10MG/ML) FOR IV START INTRADERMA ONE (09:40)
[2022-08-25] MEDS ORDERED: SCOPOLAMINE 1 MG/72 HR PATCH TRANSDERM ONE (09:55)
[2022-08-25] MEDS ORDERED: HYDROmorphone (PF) 1 MG/ML ONE (10:10)
[2022-08-25] MEDS ORDERED: PROPOFOL 10 MG/ML 20 ML VIAL IV ONE (10:10)
[2022-08-25] MEDS ORDERED: MIDAZOLAM 2 MG/2 ML VIAL ONE (10:10)
[2022-08-25] MEDS ORDERED: fentaNYL (PF) 50 MCG/ML 2 ML AMP ONE (10:10)
[2022-08-25] MEDS ORDERED: LIDOCAINE 2% INJ 20 MG/ML (2 ML VIAL) ONE (10:10)
[2022-08-25] MEDS ORDERED: SUCCINYLCHOLINE CHLORIDE 200 MG/10 ML VIAL IV ONE (10:10)
[2022-08-25] MEDS ORDERED: BUPIVACAINE (PF) 0.5% 30 ML VIAL INTRAARTIC ONE (10:38)
[2022-08-25] MEDS: MEPERIDINE 50 MG/ML SYRINGE IVP ONE ×2 (11:08→11:18)
--- NOTE | 2022-08-25 11:09 | P.OP ---
Date of Procedure: 08/25/22 Preoperative Diagnosis: Internal derangement left knee Postoperative Diagnosis: 1. Tear medial and lateral meniscus left knee 2. Grade 4 chondromalacia medial femoral condyle left knee 3. Reactive synovitis medial, lateral and suprapatellar compartments left knee Procedure(s) Performed: 1. Arthroscopic partial medial and lateral meniscectomy left knee 2. Arthroscopic microfracture medial femoral condyle left knee 3. Arthroscopic partial synovectomy medial, lateral and suprapatellar compartments left knee Anesthesia: NADINEA, local Surgeon: Gasper Gray Estimated Blood Loss (ml): 10 Pathology: none sent Condition: stable Disposition: PACU Indications for Procedure: 52-year-old patient seen with progressive left knee pain. After treatment options were discussed, she elected to proceed with arthroscopy. Operative Findings: See description of procedure Description of Procedure: Patient was taken to the operative suite. Patient underwent a general anesthetic by the department of anesthesia. Patient was given preoperative antibiotics. The left lower extremity was placed in a well-padded arthroscopic leg ibrahim. The left leg was prepped and draped in the normal sterile orthopedic fashion. A lateral parapatellar and suprapatellar incision was made. Trochars were inserted. Arthroscopy was initiated. Suprapatellar pouch revealed diffuse thick reactive synovitis. The patellofemoral joint appeared articulate congruently. There was grade 3 chondromalacia of the patella and femoral sulcus without significant osteochondral tears being present. The scope was guided into the medial gutter. No loose bodies or plica were identified. The scope was then guided into the medial compartment. A medial parapatellar incision was made. Trocar inserted followed by probe. There was a radial tear posterior horn medial meniscus. There were grade 3/4 chondromalacia changes of the medial femoral condyle with some osteochondral flap tears. There was some thick reactive synovitis anteriorly. I performed a partial medial meniscectomy getting down to stable meniscal tissue. I performed a chondroplasty of the medial femoral condyle getting down to stable osteochondral tissue. I performed a partial synovectomy decompressing the reactive synovitis. I noted an area of exposed bone medial femoral condyle. That measured approximately 1 cm diameter. I introduced a microfracture awl and performed a microfracture to the exposed bone medial femoral condyle penetrating the bone with resultant bleeding at the microfracture site. The residual meniscus was probed and was found to be stable. The residual osteochondral surface was stable. There was good decompression of the synovitis. Scope and probe were then guided into the intercondylar notch. Cruciates were identified, probed and found to be stable. The scope and probe were then guided into lateral compartment. There was a tear involving the posterior horn lateral meniscus. There were grade 2 chondromalacia changes of the tibial plateau with some osteochondral flap tears present. There was some thick reactive synovitis anteriorly. I performed a partial lateral meniscectomy getting down to stable meniscal tissue. I performe d a chondroplasty of the tibial plateau getting down to stable osteochondral tissue. I performed a partial synovectomy decompressing the reactive synovitis. The residual meniscus was stable. The residual osteochondral surface about the tibial plateau was stable. There was good decompression of the synovitis. The scope was in guided back into the suprapatellar compartment. I introduced a motorized shaver into the suprapatellar compartment. I debrided some piecemeal fragments of meniscus that I encountered. Performed a partial synovectomy. Shaver was now removed. There was good decompression of the synovitis. I now took one more look around the knee, no residual debris. Instruments were now removed from the joint. The joint was infiltrated with .25% Marcaine. Steri- Strips were applied to the portal sites. Sterile dressings were applied. The patient was placed into a GABY hose. No tourniquet was utilized. The patient was awakened, transferred to a bed and taken to recovery stable satisfactory condition.
[2022-08-25 11:13] VITALS: TEMP 97.4
[2022-08-25 12:52] VITALS: RESP 18
[2022-08-25 13:06] VITALS: BP 121/73; PULSE 74
== END 2022-08-25 13:16 | disposition home or self-care (01) ==
LOC: OR 08:55
PROVIDERS: ATTEND Orthopaedic Surgery
DX: S83.282A Other tear of lateral meniscus, current injury, left knee, initial encounter (principal); S83.242A Other tear of medial meniscus, current injury, left knee, initial encounter; M94.262 Chondromalacia, left knee; M23.92 Unspecified internal derangement of left knee; I10 Essential (primary) hypertension; K21.9 Gastro-esophageal reflux disease without esophagitis; G47.33 Obstructive sleep apnea (adult) (pediatric); Z88.0 Allergy status to penicillin; M65.9 Synovitis and tenosynovitis, unspecified
CPT/HCPCS: 81025; 29880; J2250; J0330; J1100; J2175; J0690; J2405; J3010; J1170; J2704; J2001

== ENCOUNTER → 2023-05-11 | Outpatient (CLI) | payer BC ==
--- NOTE | 2023-05-11 12:46 | P.SLEEP ---
History of Present Illness DATE: 05/11/2023 CONSULTATION/NEW PATIENT EVALUATION HISTORY OF PRESENT ILLNESS/SLEEP-WAKE EVALUATION: 52 year old lady had been evaluated in the sleep center for obstructive sleep apnea hypopnea syndrome. Patient has history of obstructive sleep apnea for about 10 years. She continued to use his CPAP equipment every night. I checked CPAP unit. CPAP pressure is 8 cm of water. Usage is 28 out of 30 nights for the last months which is good compliance. Average hours of using 7.3 hours per night. Leak is 13 L/m which is acceptable. Apnea-hypopnea index is 0.7 which is normal. 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 FALLING ASLEEP: No problems with falling asleep. DURING SLEEP: No snoring with CPAP. No history of hypnogogical hallucinations, sleep paralysis, or cataplexy. DURING THE DAY/WAKE STATE: Patient denied any significant sleepiness. [place] sleepiness scale is 6, which is in normal range. Usually patient doesn't take any additional naps. PAST MEDICAL HISTORY: Hypertension, acid reflux. PAST SURGICAL HISTORY: Left knee surgery in 2021, left leg surgery for fracture in 2013. MEDICATIONS: Spironolactone, losartan 100 mg once a day, omeprazole 20 mg once a day, meloxicam 15 mg as needed. SOCIAL HISTORY: Negative for smoking, alcohol consumption occasional. FAMILY HISTORY: Heart problems, sleep apnea, diabetes. REVIEW OF SYSTEMS: Occasional sleepiness. No fevers. No double vision. No recent chest pain. No shortness of breath. No abdominal pain. No bleeding episodes. No blood in urine. No seizure episodes. PHYSICAL EXAMINATION: GENERAL: A pleasant patient without any distress. VITAL SIGNS: BP 168/113 , HR 54 , RR 18 , weight 360.4 pounds, height 5 foot 8 inches, body mass index 54.7 . HEENT: PERRLA, EOMI. Evaluation of oropharynx showed tongue protrudes midline, low position of soft palate Mallampati 3. NECK: Supple. No JVD. Thyroid is not palpable. 17 inches in circumference. LUNGS: Clear to percussion and to auscultation. Good air exchange. No wheezing or rhonchi. HEART: S1, S2 regular. No murmurs, gallops or rubs. ABDOMEN: Soft and nontender. Bowel sounds are present. No organomegaly appreciated. Obese EXTREMITIES: No clubbing or cyanosis. RECTIFICATION PRINTER: Awake, alert, and oriented x3. Cranial nerves 2 to 7 intact. There is no fasciculation or atrophy noted. No focal deficits observed. ASSESSMENT: 1. Obstructive sleep apnea hypopnea syndrome for 10 years. Patient demonstrated good compliance with treatment, benefiting from treatment. Normal respiration according to information from CPAP unit. 2. Obesity, BMI 54.7. 3. Hypertension. 4. Acid reflux. 5 status post left knee surgery in 2021. 6. security shift supervisor worker. PLAN: 1. To get results of previous sleep study. 2. Continue to use CPAP equipment every night for the whole night 3. Preferable position during sleep on the side. 4. No driving if patient feels any sleepiness. Patient is aware of civil and criminal liability for unsafe driving. 5. Sleep hygiene with regular sleep time for at least 7.5-8 hours. 6. Watching and losing weight. 7. Follow up visit in 6 months or earlier if patient has any problems. Thank you very much for referring this patient for consultation. Sincerely, Stuart Martin MD, PhD, FAASM. Diplomat of [place] [employer], Sleep Medicine Board by [place] [employer] [place] [employer] Ad Writer of [facility] [place] Past Medical History Past Medical History: Deep Vein Thrombosis (DVT), GERD/Reflux, Hypertension, Osteoarthritis (OA), Sleep Apnea/CPAP/BIPAP Additional Past Medical History / Comment(s): uses cpap, hx DVT behind rt knee and rt ankle after fx left leg and surgery 2013 History of Any Multi-Drug Resistant Organisms: None Reported Past Surgical History: Heart Catheterization, Orthopedic Surgery, Tubal Ligation, Uterine Ablation Additional Past Surgical History / Comment(s): left ankle fx-plates and screws, left foot second toe Past Anesthesia/Blood Transfusion Reactions: Motion Sickness, Postoperative Nausea & Vomiting (PONV) Smoking Status: Never smoker - Past Family History Mother Family Medical History: No Reported History Medications and Allergies Home Medications Medication Instructions Recorded Confirmed Type Ergocalciferol [Vitamin D2] 50,000 unit PO Q7D 11/10/17 08/24/22 History Losartan [Cozaar] 100 mg PO QAM 11/10/17 08/24/22 History Omeprazole 20 mg PO QAM 11/12/20 08/24/22 History Potassium Chloride [Klor-Con 20] 20 meq PO DAILY 11/12/20 08/24/22 History L.acidoph,Paracasei, B.lactis 1 each PO DAILY 03/10/22 08/24/22 History [Probiotic] Spironolactone(Unk Dose) 1 tab PO DAILY 03/10/22 08/24/22 History HYDROcodone/APAP 5-325MG [[place] 1 tab PO Q6HR PRN #12 tab 08/25/22 Rx 5-325] Allergies Allergy/AdvReac Type Severity Reaction Status Date / Time Penicillins Allergy Unknown Rash/Hives, Verified 08/25/22 09:17 Itching adhesive Allergy Steri Verified 08/25/22 09:17 Strips - Irritated skin and infection adhesive tape AdvReac IRRITATED Verified 08/25/22 09:17 SKIN Sleep Note - Sleep Note Sleep Note: Temperature: Pulse Rate: Respiratory Rate: Blood Pressure: SpO2: Height: Weight: BMI: Neck Circumference:
== END ==
LOC: 3 N SLEEP 11:31
PROVIDERS: ATTEND Internal Medicine
DX: G47.33 Obstructive sleep apnea (adult) (pediatric) (principal); E66.9 Obesity, unspecified; I10 Essential (primary) hypertension; K21.9 Gastro-esophageal reflux disease without esophagitis; Z68.43 Body mass index [BMI] 50.0-59.9, adult; Z99.89 Dependence on other enabling machines and devices; Z88.0 Allergy status to penicillin; Z91.048 Other nonmedicinal substance allergy status; Z98.890 Other specified postprocedural states
CPT/HCPCS: 99211

== ENCOUNTER → 2023-05-18 | Outpatient (CLI) | payer BC ==
--- NOTE | 2023-05-18 10:38 | CT ---
EXAMINATION TYPE: CT abdomen pelvis wo con DATE OF EXAM: 05/18/2023 COMPARISON: None INDICATION: Abdominal pain, possible renal stones DLP: 2450.10 mGycm, Automated exposure control for dose reduction was used. CONTRAST: 0 mL of Isovue 300. Study performed without Oral Contrast TECHNIQUE: Axial images were obtained from above the diaphragm to the pubic rami in the axial plane a t 5 mm thick sections. Reconstructed images are reviewed on the computer in the coronal plane. FINDINGS: Limited CT sections are obtained the lung bases. The lung bases are clear. CT ABDOMEN: Liver: Normal Spleen: Normal Pancreas: Normal Adrenal glands: The adrenal glands are normal. Gallbladder: The breast Kidneys: No masses are evident. No hydronephrosis is present. No cysts are present. There is a tin y punctate density may be a nonobstructing renal stone left kidney. Aorta: Normal Inferior vena cava: Normal. CT PELVIS: Loops of bowel within the abdomen and pelvis are normal. The study is without oral contrast limit ing bowel evaluation. Appendix: Normal as visualized. Urinary bladder: Normal. Genitourinary structures: Uterus appears unremarkable. Adnexa are normal. Osseous structures: No suspicious lytic or sclerotic lesions. There is loss of disc height at L5-S1. Mild retrolisthesis may be present IMPRESSIONS: 1. No suspicious abnormality to account for abdominal pain. Tiny nonobstructing renal stone may be p resent on the left.
== END | disposition home or self-care (01) ==
LOC: RADCTMAIN 07:31
PROVIDERS: ATTEND Family Medicine
DX: R10.11 Right upper quadrant pain (principal); R10.31 Right lower quadrant pain; R31.9 Hematuria, unspecified
CPT/HCPCS: 74176

== ENCOUNTER → 2023-11-23 | Outpatient (CLI) | payer BC ==
--- NOTE | 2023-11-23 12:07 | P.PN ---
Subjective DATE: 11/23/2023 FOLLOW UP VISIT. Patient with obstructive sleep apnea hypopnea syndrome return to sleep center for follow-up visit. Information from previous visit have been reviewed. Patient is using PAP equipment every night for the whole night, getting PAP supplies in time. The patient does not have significant problems with the mask, PAP unit and humidification. Jenner sleepiness scale is 8. I checked information from PAP unit. PAP unit pressure 8 cm H2O. Usage is 100% for more then 4 hours, average 7.4 hours per night. Leak is 8l/m, which is in acceptable range. Apnea Hypopnea Index is 0.6, which is normal. MEDICATIONS:1. Losartan 100 mg once a day 2. Omeprazole once a day 3. Spironolactone 25 mg once a day During physical exam: GENERAL: A pleasant patient without any distress. VITAL SIGNS: BP 168/89, HR 55, RR 16, weight 360.6, temperature 98.4, oxygen saturation at room air 96% . HEENT: PERRLA, EOMI.low position of soft palate, Mallapati 3 . NECK: Supple. No JVD. LUNGS: Clear to percussion and to auscultation. Good air exchange. No wheezing or rhonchi. HEART: S1, S2 regular. ABDOMEN: Soft and nontender.[] EXTREMITIES: No clubbing or cyanosis. CASE SEALER: Awake, alert, and oriented x3. No focal deficit. Impressions: 1. Obstructive sleep apnea-hypopnea syndrome. Patient demonstrated great compliance with treatment, benefiting from treatment. 2. Hypertension. 3. Obesity, BMI 53.9. 4. Acid reflux. 5. Status post left knee surgery in 2021. Plan: 1. Continue using PAP equipment every night for the whole night. 2. To change air filter at least 1-2 times per month. 3. PAP unit should stay lower then position of the head. 4. Advised patient to remove all remaining water from humidifier canister daily and make it dry after each usage. Refill canister with fresh distilled water before each usage. 5. Sleep hygiene with regular time in bed for at least 8 hours. 6. Precautions related to driving. No driving if feel any sleepiness. 7. I will maintain prescription for PAP supplies including mask, tube, filters. 8. Follow up visit in 6 months or earlier if patient has any problems. 9. Watching and losing. Thank you very much for allowing me to participate in the management of your patient. Stuart Martin MD, PhD, FAASM. Diplomat of [place] [employer], Sleep Medicine Board by [place] [employer] Mice Raiser of [facility] [place]
== END ==
LOC: 3 N SLEEP 10:53
PROVIDERS: ATTEND Internal Medicine
DX: G47.33 Obstructive sleep apnea (adult) (pediatric) (principal); I10 Essential (primary) hypertension; E66.9 Obesity, unspecified; K21.9 Gastro-esophageal reflux disease without esophagitis; Z98.890 Other specified postprocedural states; Z68.43 Body mass index [BMI] 50.0-59.9, adult; Z79.899 Other long term (current) drug therapy; Z99.89 Dependence on other enabling machines and devices; Z88.0 Allergy status to penicillin; Z91.048 Other nonmedicinal substance allergy status
CPT/HCPCS: 99212

== ENCOUNTER → 2024-03-12 | Outpatient (CLI) | payer BC ==
--- NOTE | 2024-03-13 18:47 | MM ---
Reason for Exam: Screening (asymptomatic). Last screening mammogram was performed 12 month(s) ago. Patient History: Menarche at age 14. First Full-Term at age 32. Late child-bearing (after 30). Perimenopausal. Maternal aunt had breast cancer, age 55. Risk Values: Melida 5 year model risk: 1.5%. NCI Lifetime model risk: 11.8%. Prior Study Comparison: 07/14/2017 Bilateral Screening Mammogram, [facility]. 10/16/2018 Bilateral Screening Mammogram, [facility]. 11/21/2019 Bilateral Screening Mammogram, [facility]. 12/23/2020 Bilateral Screening Mammogram, [facility]. 02/05/2022 Bilateral Screening Mammogram, [facility]. 03/11/2023 Bilateral MG screening mammo w CAD, [facility]. Tissue Density: The breasts are almost entirely fatty. Findings: Analyzed By CAD. Chronic nodularity on the right. There is no suspicious group of microcalcifications or new suspicious mass in either breast. Overall Assessment: Benign, BI-RAD 2 Management: Screening Mammogram of both breasts in 1 year. . Patient should continue monthly self-breast exams. A clinical breast exam by your physician is recommended on an annual basis. This exam should not preclude additional follow-up of suspicious palpable abnormalities. Note on Melida scores and lifetime risk: 1. A Melida score greater than 3% is considered moderate risk. If this is the case, consider specialist referral to assess eligibility for a risk reducing agent. 2. If overall lifetime risk for the development of breast cancer is 20% or higher, the patient may qualify for future screening with alternating mammogram and breast MRI. Electronically signed and approved by: Lawson Mckee M.D. Radiologist
== END | disposition home or self-care (01) ==
LOC: RADMAMWWP 07:23
PROVIDERS: ATTEND Family Medicine
DX: Z12.31 Encounter for screening mammogram for malignant neoplasm of breast (principal); Z80.3 Family history of malignant neoplasm of breast
CPT/HCPCS: 77067

== ENCOUNTER 2024-05-24 17:47 | Emergency (ER) | payer BC ==
--- NOTE | 2024-05-24 18:42 | XR ---
EXAMINATION TYPE: XR knee complete RT DATE OF EXAM: 05/24/2024 COMPARISON: None HISTORY: Pain TECHNIQUE: 3 view right knee FINDINGS: Medial and lateral compartment joint spaces are preserved. Some patellofemoral joint space narrowing may be present. No acute fracture or dislocation evident. No joint effusion is evident. Some calcification extending from the posterior superior patella. There may be some early calcification within Hoffa's fat pad. IMPRESSION: 1. No acute osseous abnormality radiographically apparent. 2. There may be some chronic calcification forming at the superior patella and within Hoffa's fat pad . Consider Alcian pyrophosphate deposition disease.
[2024-05-24 18:58] VITALS: PULSE 64
--- NOTE | 2024-05-24 19:33 | ED ---
General Adult HPI - General Chief complaint: Extremity Injury, Lower Stated complaint: R knee injury Time Seen by Provider: 05/24/24 17:52 Source: patient, RN notes reviewed Mode of arrival: wheelchair Limitations: no limitations - History of Present Illness Initial comments: 54-year-old female presents to the emergency department for evaluation of right knee pain. Patient states that she has been experiencing pain in her right knee for the past few months. She states that the pain has been intermittent but today her knee gave out on her and since then she has had more pain to the area. She denies any overlying skin changes, calf pain, leg swelling. She reports range of motion at the knee is painful. She denies any significant trauma. - Related Data Home Medications Medication Instructions Recorded Confirmed Ergocalciferol [Vitamin D2] 50,000 unit PO Q7D 11/10/17 08/24/22 Losartan [Cozaar] 100 mg PO QAM 11/10/17 08/24/22 Omeprazole 20 mg PO QAM 11/12/20 08/24/22 Potassium Chloride [Klor-Con 20] 20 meq PO DAILY 11/12/20 08/24/22 L.acidoph,Paracasei, B.lactis 1 each PO DAILY 03/10/22 08/24/22 [Probiotic] Spironolactone(Unk Dose) 1 tab PO DAILY 03/10/22 08/24/22 Previous Rx's Medication Instructions Recorded HYDROcodone/APAP 5-325MG [[place] 1 tab PO Q6HR PRN #12 tab 08/25/22 5-325] methylPREDNISolone Dose Pack 4 mg PO DIRECTED #21 tab 05/24/24 [Medrol Dose Pack] Allergies Allergy/AdvReac Type Severity Reaction Status Date / Time Penicillins Allergy Unknown Rash/Hives, Verified 08/25/22 09:17 Itching adhesive Allergy Steri Verified 08/25/22 09:17 Strips - Irritated skin and infection adhesive tape AdvReac IRRITATED Verified 08/25/22 09:17 SKIN Review of Systems ROS Statement: Those systems with pertinent positive or pertinent negative responses have been documented in the HPI. ROS Other: All systems not noted in ROS Statement are negative. Past Medical History Past Medical History: Deep Vein Thrombosis (DVT), GERD/Reflux, Hypertension, Osteoarthritis (OA), Sleep Apnea/CPAP/BIPAP Additional Past Medical History / Comment(s): uses cpap, hx DVT behind rt knee and rt ankle after fx left leg and surgery 2013 History of Any Multi-Drug Resistant Organisms: None Reported Past Surgical History: Heart Catheterization, Orthopedic Surgery, Tubal Ligation, Uterine Ablation Additional Past Surgical History / Comment(s): left ankle fx-plates and screws, left foot second toe Past Anesthesia/Blood Transfusion Reactions: Motion Sickness, Postoperative Nausea & Vomiting (PONV) Past Psychological History: No Psychological Hx Reported Smoking Status: Never smoker - Past Family History Mother Family Medical History: No Reported History General Exam Limitations: no limitations General appearance: alert, in no apparent distress Head exam: Present: atraumatic, normocephalic, normal inspection Eye exam: Present: normal appearance, PERRL, EOMI. Absent: scleral icterus, conjunctival injection, periorbital swelling Respiratory exam: Present: normal lung sounds bilaterally. Absent: respiratory distress, wheezes, rales, rhonchi, stridor Cardiovascular Exam: Present: regular rate, normal rhythm, normal heart sounds. Absent: systolic murmur, diastolic murmur, rubs, gallop, clicks Extremities exam: Present: full ROM, tenderness (right knee), normal capillary refill, other (distal pulses 2+ ). Absent: pedal edema, calf tenderness Back exam: Present: normal inspection Neurological exam: Present: alert, oriented X3 Psychiatric exam: Present: normal affect, normal mood Skin exam: Present: warm, dry, intact, normal color. Absent: rash Course Vital Signs 05/24/24 05/24/24 05/24/24 17:48 18:47 19:48 Temperature 98 F 98 F 97.9 F Pulse Rate 63 64 64 Respiratory 16 16 18 Rate Blood Pressure 180/81 165/82 150/90 O2 Sat by Pulse 98 98 98 Oximetry Medical Decision Making - Medical Decision Making Was pt. sent in by a medical professional or institution (, PA, [employer], urgent care, hospital, or fpc...) When possible be specific @ -No Did you speak to anyone other than the patient for history (EMS, parent, family, police, friend...)? What history was obtained from this source @ -No Did you review nursing and triage notes (agree or disagree)? Why? @ -I reviewed and agree with nursing and triage notes Were old charts reviewed (outside hosp., previous admission, EMS record, old EKG, old radiological studies, urgent care reports/EKG's, fpc records)? Report findings @ -No old charts were reviewed Differential Diagnosis (chest pain, altered mental status, abdominal pain women, abdominal pain men, vaginal bleeding, weakness, fever, dyspnea, syncope, headache, dizziness, GI bleed, back pain, seizure, CVA, palpatations, mental health, musculoskeletal)? @ -Differential Musculoskeletal Muscular strain, contusion, ligament sprain, fracture, arthritis, septic arthritis, bursitis, cellulitis, muscle spasm, nerve compression, DVT, arterial occlusion, herpes zoster, electrolyte abnormality, tumor.... This is not meant to be in all inclusive list EKG interpreted by me (3pts min.). @ -None X-rays interpreted by me (1pt min.). @ -X-ray of the right knee obtained shows no acute osseous abnormality, chronic calcification CT interpreted by me (1pt min.). @ -None done U/S interpreted by me (1pt. min.). @ -None done What testing was considered but not performed or refused? (CT, X-rays, U/S, labs)? Why? @ -None What meds were considered but not given or refused? Why? @ -None Did you discuss the management of the patient with other professionals (professionals i.e. , PA, [employer], lab, RT, psych nurse, social work lecturer, six sigma black trainer, teacher, aeronautical engineering officer, correctional case manager)? Give summary @ -No Was smoking cessation discussed for >3mins.? @ -No Was critical care preformed (if so, how long)? @ -No Were there social determinants of health that impacted care today? How? (Homelessness, low income, unemployed, alcoholism, drug addiction, transportation, low edu. Level, literacy, decrease access to med. care, senior care, rehab)? @ -No Was there de-escalation of care discussed even if they declined (Discuss DNR or withdrawal of care, Hospice)? DNR status @ -No What co-morbidities impacted this encounter? (DM, HTN, Smoking, COPD, CAD, Cancer, CVA, ARF, Chemo, Hep., AIDS, mental health diagnosis, sleep apnea, morbid obesity)? @ -None Was patient admitted / discharged? Hospital course, mention meds given and route, prescriptions, significant lab abnormalities, going to OR and other pertinent info. @ -Discharged. Patient presented to the emergency department for evaluation of right knee pain. XR obtained revealing no acute abnormality, chronic calcification at the superior patella. Patient treated symptomatically in ED. Advised orthopedic follow up. Patient understanding and agreeable with plan. Patient stable at time of discharge. Case discussed with Dr. Jarrett Undiagnosed new problem with uncertain prognosis? @ -No Drug Therapy requiring intensive monitoring for toxicity (Heparin, Nitro, Insulin, Cardizem)? @ -No Were any procedures done? @ -No Diagnosis/symptom? @ -Knee sprain Acute, or Chronic, or Acute on Chronic? @ -Acute Uncomplicated (without systemic symptoms) or Complicated (systemic symptoms)? @ -Uncomplicated Side effects of treatment? @ -No Exacerbation, Progression, or Severe Exacerbation? @ -No Poses a threat to life or bodily function? How? (Chest pain, [place], SC, pneumonia, PE, COPD, DKA, ARF, appy, cholecystitis, CVA, Diverticulitis, Homicidal, Suicidal, threat to staff... and all critical care pts) @ -No Disposition Clinical Impression: Knee pain Disposition: HOME SELF-CARE Condition: Stable Instructions (If sedation given, give patient instructions): Knee Sprain (ED) Additional Instructions: Please follow up with Dr. Gray. Return to the emergency department for new or worsening symptoms. Prescriptions: methylPREDNISolone Dose Pack [Medrol Dose Pack] 4 mg PO DIRECTED #21 tab Is patient prescribed a controlled substance at d/c from ED?: No Referrals: Lisa Oconnell DO [Primary Care Provider] - 1-2 days
[2024-05-24] MEDS: ACET/COD 300 MG/30 MG STARTER PACK 6 TAB BTL PO STA (19:40)
[2024-05-24 19:49] VITALS: BP 150/90; RESP 18; TEMP 97.9
== END 2024-05-24 19:49 | disposition home or self-care (01) ==
LOC: EC 17:47
DX: S83.91XA Sprain of unspecified site of right knee, initial encounter (principal); Z88.0 Allergy status to penicillin; Z91.09 Other allergy status, other than to drugs and biological substances; X58.XXXA Exposure to other specified factors, initial encounter
CPT/HCPCS: 99283

== ENCOUNTER → 2024-06-05 | Outpatient (CLI) | payer BC ==
--- NOTE | 2024-06-06 09:35 | MR ---
EXAMINATION TYPE: MR knee RT wo con DATE OF EXAM: 06/05/2024 COMPARISON: None HISTORY: Right knee pain x6 months TECHNIQUE: Multiplanar, multisequence imaging of the right knee is performed without IV contrast. FINDINGS: MEDIAL MENISCUS: Anterior and posterior horns are intact without tear. LATERAL MENISCUS: Anterior and posterior horns are intact without tear. CRUCIATE LIGAMENTS: The anterior and posterior cruciate ligaments are intact and unremarkable. COLLATERAL LIGAMENTS: The medial collateral ligament and lateral collateral ligament complex are inta ct and unremarkable. EXTENSOR MECHANISM: Visualized quadriceps and patellar tendons are intact. EFFUSION: No significant suprapatellar joint effusion. POPLITEAL CYST: Small popliteal fossa cyst measuring 3.1cm in craniocaudal dimension TRICOMPARTMENT SPACES: Moderate degenerative narrowing medial tibiofemoral joint space. Severe narrow ing patellofemoral joint space narrowing with changes of chondromalacia patella. Associated spur form ation. CARTILAGE: Thinning noted. BONE MARROW SIGNAL: No focal abnormal marrow signal is appreciated. OTHER: No additional significant abnormality is appreciated. IMPRESSION: 1. Changes of osteoarthritis. 2. Popliteal fossa cyst.
== END | disposition home or self-care (01) ==
LOC: RADMRIMAIN 13:01
PROVIDERS: ATTEND Orthopaedic Surgery
DX: M17.11 Unilateral primary osteoarthritis, right knee (principal); M71.21 Synovial cyst of popliteal space [Baker], right knee

== ENCOUNTER → 2024-07-18 | Outpatient (CLI) | payer BC ==
[2024-07-18 11:26] VITALS: BP 150/84; PULSE 57; RESP 16; TEMP 98.3
--- NOTE | 2024-07-18 11:44 | P.PROGSL ---
Subjective DATE: 07/18/2024 FOLLOW UP VISIT. Patient with obstructive sleep apnea hypopnea syndrome return to sleep center for follow-up visit. Information from previous visit have been reviewed. Patient is using PAP equipment every night for the whole night, getting PAP supplies in time. The patient does not have significant problems with the mask, PAP unit and humidification. [place] sleepiness scale is 5, which is normal. I checked information from PAP unit. PAP unit pressure 8 cm H2O. Usage is 100% for more then 4 hours, average 7.3 hours per night. Leak is 10 l/m, which is in acceptable range. Apnea Hypopnea Index is 0.8, which is normal. Motor life expectancy exceeded, but machine works perfectly well at the present time. MEDICATIONS have been reviewed, please see below. During physical exam: GENERAL: A pleasant patient without any distress. VITAL SIGNS: Please see below, weight is 348.8 lbs. HEENT: PERRLA, EOMI.low position of soft palate, Mallapati 3 . NECK: Supple. No JVD. LUNGS: Clear to percussion and to auscultation. Good air exchange. No wheezing or rhonchi. HEART: S1, S2 regular. ABDOMEN: Soft and nontender. Obese EXTREMITIES: No clubbing or cyanosis. DIAGNOSTIC SALES SPECIALIST: Awake, alert, and oriented x3. No focal deficit. Impressions: 1. Obstructive sleep apnea-hypopnea syndrome. Patient demonstrated great compliance with treatment, benefiting from treatment. 2. Obesity, patient lost 12 pounds comparing with previous visit, BMI 53.6. 3. Hypertension. 4. Acid reflux. 5. Status post left knee surgery in 2021. 6. Knee problems. Plan: 1. Continue using PAP equipment every night for the whole night. 2. Sleep hygiene with regular time in bed for at least 7.5-8 hours 3. PAP unit should stay lower then position of the head. 4. Advised patient to remove all remaining water from humidifier canister daily and make it dry after each usage. Refill canister with fresh distilled water before each usage. 5. Watching and losing weight. 6. Precautions related to driving. No driving if feel any sleepiness. 7. I will maintain prescription for PAP supplies including mask, tube, filters. 8. Follow up visit in 6 months or earlier if patient has any problems. Thank you very much for allowing me to participate in the management of your patient. Stuart Martin MD, PhD, FAASM. Diplomat of [place] [employer], Sleep Medicine Board by [place] [employer] Director of [facility] [place] Objective - Vital Signs Vital Signs: Vital Signs Temp 98.3 F 07/18/24 11:25 Pulse 57 L 07/18/24 11:25 Resp 16 07/18/24 11:25 BP 150/84 07/18/24 11:25 Pulse Ox 98 07/18/24 11:25 FiO2 Intake & Output 07/17/24 07/18/24 07/18/24 18:59 06:59 18:59 Weight 158.077 kg Home Medications: Home Medications Medication Instructions Recorded Confirmed Type Ergocalciferol [Vitamin D2] 50,000 unit PO Q7D 11/10/17 07/18/24 History Losartan [Cozaar] 100 mg PO QAM 11/10/17 07/18/24 History Omeprazole 20 mg PO QAM 11/12/20 07/18/24 History Potassium Chloride [Klor-Con 20] 20 meq PO DAILY 11/12/20 07/18/24 History L.acidoph,Paracasei, B.lactis 1 each PO DAILY 03/10/22 07/18/24 History [Probiotic] Spironolactone(Unk Dose) 25 mg PO DAILY 03/10/22 07/18/24 History HYDROcodone/APAP 5-325MG [[place] 1 tab PO Q6HR PRN #12 tab 08/25/22 Rx 5-325] methylPREDNISolone Dose Pack 4 mg PO DIRECTED #21 tab 05/24/24 Rx [Medrol Dose Pack] Meloxicam [Mobic] 15 mg PO DAILY 07/18/24 07/18/24 History
== END ==
LOC: 3 N SLEEP 10:48
PROVIDERS: ATTEND Internal Medicine
CPT/HCPCS: 99212

== ENCOUNTER → 2025-02-13 | Outpatient (CLI) | payer BC ==
[2025-02-13 11:43] VITALS: BP 156/77; PULSE 60; RESP 18; TEMP 97.9
--- NOTE | 2025-02-13 12:04 | P.PROGSL ---
Subjective DATE: 07/27/2025 FOLLOW UP VISIT. Patient with obstructive sleep apnea hypopnea syndrome return to sleep center for follow-up visit. Information from previous visit have been reviewed. Patient is using PAP equipment every night for the whole night, getting PAP supplies in time. The patient does not have significant problems with the mask, PAP unit and humidification. [place] sleepiness scale is 6, which is normal. I checked information from PAP unit. PAP unit pressure 8 cm H2O. Usage is 100% for more then 4 hours, average 7.1 hours per night. Leak is 16 l/m, which is in acceptable range. Apnea Hypopnea Index is 1.1, which is normal. MEDICATIONS: Spironolactone 25 mg once a day, losartan 100 mg once a day, omeprazole. During physical exam: GENERAL: A pleasant patient without any distress. VITAL SIGNS: Please see below, weight is 324 lbs. HEENT: PERRLA, EOMI.low position of soft palate, Mallapati 3. NECK: Supple. No JVD. LUNGS: Clear to percussion and to auscultation. Good air exchange. No wheezing or rhonchi. HEART: S1, S2 regular. ABDOMEN: Soft and nontender. Losartan 100 mg once a day 0 EXTREMITIES: No clubbing or cyanosis. BISCUIT MACHINE OPERATOR: Awake, alert, and oriented x3. No focal deficit. Impressions: 1. Obstructive sleep apnea-hypopnea syndrome. Patient demonstrated great compliance with treatment, benefiting from treatment. 2. Obesity, patient lost 24 pounds comparing with previous visit, BMI 50.4. 3. Acid reflux. 4. Status post left knee surgery. 5. Hypertension. 6. Knee problems. Plan: 1. Continue using PAP equipment every night for the whole night. 2. Sleep hygiene with regular time in bed for at least 7.5-8 hours 3. PAP unit should stay lower then position of the head. 4. Advised patient to remove all remaining water from humidifier canister daily and make it dry after each usage. Refill canister with fresh distilled water before each usage. 5. Watching and continue losing weight. 6. Precautions related to driving. No driving if feel any sleepiness. 7. I will maintain prescription for PAP supplies including mask, tube, filters. 8. Follow up visit in 8 months or earlier if patient has any problems. Thank you very much for allowing me to participate in the management of your patient. Stuart Stefadu, MD, PhD, FAASM. Diplomat of [place] [employer], Sleep Medicine Board by [place] Specialist of [facility] [place] Objective - Vital Signs Vital Signs: Vital Signs Temp 97.9 F 02/13/25 11:38 Pulse 60 02/13/25 11:38 Resp 18 02/13/25 11:38 BP 156/77 02/13/25 11:38 Pulse Ox 99 02/13/25 11:38 FiO2 Intake & Output 02/12/25 02/13/25 02/13/25 18:59 06:59 18:59 Weight 147.077 kg Home Medications: Home Medications Medication Instructions Recorded Confirmed Type Ergocalciferol [Vitamin D2] 50,000 unit PO Q7D 11/10/17 07/18/24 History Losartan [Cozaar] 100 mg PO QAM 11/10/17 07/18/24 History Omeprazole 20 mg PO QAM 11/12/20 07/18/24 History Potassium Chloride [Klor-Con 20] 20 meq PO DAILY 11/12/20 07/18/24 History L.acidoph,Paracasei, B.lactis 1 each PO DAILY 03/10/22 07/18/24 History [Probiotic] Spironolactone(Unk Dose) 25 mg PO DAILY 03/10/22 07/18/24 History HYDROcodone/APAP 5-325MG [[place] 1 tab PO Q6HR PRN #12 tab 08/25/22 Rx 5-325] methylPREDNISolone Dose Pack 4 mg PO DIRECTED #21 tab 05/24/24 Rx [Medrol Dose Pack] Meloxicam [Mobic] 15 mg PO DAILY 07/18/24 07/18/24 History
== END ==
LOC: 3 N SLEEP 11:15
PROVIDERS: ATTEND Internal Medicine
DX: G47.33 Obstructive sleep apnea (adult) (pediatric) (principal); E66.01 Morbid (severe) obesity due to excess calories; K21.9 Gastro-esophageal reflux disease without esophagitis; I10 Essential (primary) hypertension; Z68.43 Body mass index [BMI] 50.0-59.9, adult; Z88.0 Allergy status to penicillin; Z91.048 Other nonmedicinal substance allergy status; Z98.890 Other specified postprocedural states
CPT/HCPCS: 99212